=== PATIENT | female | born 1985 | race Caucasian/White ===

== ENCOUNTER → 2019-07-19 08:02 | Outpatient (CLI) | payer OTHER, SELFPAY ==
--- NOTE | ~2019-07-19 | MMUS_ITS ---
EXAMINATION: MM diagnostic mammo unilat LT, US breast LT limited HISTORY: Architectural distortion suggested in posterior lateral left breast on screening CC view of 06/15/2019 TECHNIQUE: Additional ML and spot ML and cc 3-D tomosynthesis images of were performed and synthetic 2-D images were generated. CAD analysis was submitted and interpreted. High resolution upper outer an d lower-outer quadrants left breast ultrasound was performed. COMPARISON: 06/15/2019 bilateral digital screening mammogram 12/15/2018 and 06/03/2018 diagnostic left digital mammogram and limited left breast ultrasound examina tions BREAST PARENCHYMAL COMPOSITION: There are scattered areas of fibroglandular density. FINDINGS: MAMMOGRAPHIC FINDINGS: No reproducible mass or architectural distortion or significant new finding is noted compared to prio r examinations dating back to 06/03/2018. ULTRASOUND: There is some dense stroma in the 2-3:00 area but no discrete mass lesion is evident. No solid mass lesion, cyst or other significant sonographic finding is noted in the upper outer or lo wer outer quadrant of the left breast. IMPRESSION: 1. Dense stroma in the left breast at 2-3:00, without discrete mass 2. 6 month follow-up diagnostic left mammogram and left breast ultrasound examination are recommended BI-RADS category 3, probably benign findings. Reviewed, dictated and finalized at location A. LLMENT PROCESSOR IMPRESSION: 1. Dense stroma in the left breast at 2-3:00, without discrete mass 2. 6 month follow-up diagnostic left mammogram and left breast ultrasound exami [facility] are recommended BI-RADS category 3, probably benign findings.
== END ==
DX: R92.8 Other abnormal and inconclusive findings on diagnostic imaging of breast (principal)
CPT/HCPCS: 76642; 77065

== ENCOUNTER → 2020-02-20 09:25 | Outpatient (CLI) | payer OTHER, SELFPAY ==
--- NOTE | ~2020-02-20 | MMUS_ITS ---
EXAMINATION: MM diagnostic brock LT w keysha, US breast LT limited HISTORY: Follow-up left breast asymmetry TECHNIQUE: Additional 3-D tomosynthesis images of the left breast were performed and synthetic 2-D im ages were generated. CAD analysis was submitted and interpreted. High resolution left breast ultrasou nd was performed. COMPARISON: Comparison to multiple prior studies sequentially, with oldest reviewed study dated 12/2017. BREAST PARENCHYMAL COMPOSITION: Breast composed of scattered areas of fibroglandular density FINDINGS: MAMMOGRAPHIC FINDINGS: Left breast asymmetry laterally in the left breast is stable compared with prior examinations. No new masses, calcifications or architectural distortion. ULTRASOUND: Left breast ultrasound: Normal heterogeneous echotexture without focal solid or cystic mass. IMPRESSION: 1. Stable left breast asymmetry. No evidence for malignancy. 2. Routine yearly screening mammogram and regular clinical breast examination are recommended. BI-RADS Category 2: Benign finding(s). Reviewed, dictated and finalized at location A. IMPRESSION: 1. Stable left breast asymmetry. No evidence for malignancy. 2. Routine yearly screening mammogram and regular clinical breast examination a re recommended. BI-RADS Category 2: Benign finding(s).
== END ==
DX: R92.8 Other abnormal and inconclusive findings on diagnostic imaging of breast (principal)
CPT/HCPCS: 76642; 77061; 77065; G0279

== ENCOUNTER → 2020-06-18 09:45 | Outpatient (CLI) | payer OTHER, SELFPAY ==
--- NOTE | ~2020-06-18 | US_ITS ---
EXAMINATION: US pelvic complete w TV EXAM DATE: 06/18/2020 10:14 INDICATION: Irregular menstruation. TECHNIQUE: Pelvic transabdominal and transvaginal sonogram was performed. There are multiple graysca le and Doppler images available for interpretation. Comparison is made to prior examination from 2019. FINDINGS: Uterus measures 7.8 x 3.8 x 4.6 cm, is anteverted and morphologically normal. Endometrial stripe measures 10 mm, within normal limits. There is no free pelvic fluid. Right adnexa: The ovary measures 2.6 x 2.3 x 2.3 cm and is morphologically normal. Ovarian vascular f low confirmed. Left adnexa: The ovary measures 1.8 x 2.4 x 2.5 cm and is morphologically normal. Ovarian vascular fl ow confirmed. IMPRESSION: Previously described small fibroid not definitively identified on this exam. Reviewed, dictated and finalized at location B. NSED MORTICIAN IMPRESSION: Previously described small fibroid not definitively identified on t his exam.
== END ==
PROVIDERS: PCP Family Medicine; Visit Provider Obstetrics & Gynecology
DX: N92.6 Irregular menstruation, unspecified (principal)
CPT/HCPCS: 76830; 76856

== ENCOUNTER 2021-04-14 09:04 | Emergency (ER) | payer OTHER, SELFPAY ==
[2021-04-14 09:08] VITALS: BP 137/84; PULSE 86; RESP 17; TEMP 36.8; O2SAT 100
[2021-04-14] MEDS: methylPREDNISolone SOD SUCC 125 MG VIAL IM (09:38)
[2021-04-14] MEDS: KETOROLAC (*BKC) 60 MG/2 ML VIAL IM (09:38)
[2021-04-14] MEDS: diazePAM (*CRX) 5 MG TABLET PO (09:38)
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
[2021-04-14] MEDS: HYDROcodone/acetaminophen (*CRX) 5-325 MG TABLET 1 TAB PO (11:46)
[2021-04-14 12:47] VITALS: BP 126/92; PULSE 78; RESP 18; O2SAT 100
== END 2021-04-14 12:48 | disposition home or self-care (01) ==
PROVIDERS: Emergency Provider Emergency Medicine; PCP Family Medicine
DX: M62.830 Muscle spasm of back (principal); Z96.611 Presence of right artificial shoulder joint; Z87.891 Personal history of nicotine dependence
CPT/HCPCS: 96372; 99284; A9270; J1885; J2930

== ENCOUNTER 2023-01-05 11:01 | Outpatient (CLI) | payer OTHER, SELFPAY ==
--- NOTE | ~2023-01-05 | XR_ITS ---
EXAM: XR abdomen/kub 1V DATE: 01/05/2023 11:24 HISTORY: Abdominal distension (gaseous) . COMPARISON: None available. FINDINGS: Cholecystectomy clips. Clear lung bases. Normal bowel gas pattern. No organomegaly. No abno rmal abdominal calcification. Regional bones and soft tissues normal for age. IMPRESSION: Normal abdominal radiograph findings. Reviewed, dictated and finalized at location K.
[2023-01-08 09:24] LABS: Immunoglobulin A 158 mg/dL (47-310); TTG IGA AB <1.0 U/mL (<15.0)
[2023-01-11 13:01] LABS: ANCA Screen Negative (Negative); Myeloperoxidase Ab <1.0 AI (<1.0); Proteinase-3 Ab <1.0 AI (<1.0); S cerevisiae Ab (IgA) 5.1 U (<=20.0); S cerevisiae Ab (IgG) 3.4 U (<=20.0)
[2023-01-13 22:45] LABS: Calprotectin, Stool <5 mcg/g
== END 2023-01-05 11:02 | disposition home or self-care (01) ==
PROVIDERS: PCP Family Medicine; Visit Provider Internal Medicine Gastroenterology
DX: R14.0 Abdominal distension (gaseous) (principal); K52.9 Noninfective gastroenteritis and colitis, unspecified
CPT/HCPCS: 36415; 74018; 82784; 83993; 86036; 86364; 86671